=== PATIENT | male | born 1980 | race Caucasian/White ===

== ENCOUNTER 2021-12-03 12:44 | Emergency (ER) | payer MEDICAID, SELFPAY ==
--- NOTE | ~2021-12-03 | XR_ITS ---
Examination: XR femur LT 2V, XR tibia fibula LT 2V Indication: r/o fx Comparison: No pertinent prior studies are currently available for comparison. Technique: Frontal and lateral views the femur with frontal and lateral views of the left tibia and fibula obtained. Findings: Bones are normal anatomic alignment. I do not appreciate any acute fracture or dislocation. Femoral head is well-seated within the left acetabulum. No significant knee joint effusion. Visualized ankle is unremarkable. No bony destructive lesion or periosteal reaction. XR/XR tibia fibula LT 2V Impression: No acute fracture or dislocation.
--- NOTE | ~2021-12-03 | XR_ITS ---
Examination: XR femur LT 2V, XR tibia fibula LT 2V Indication: r/o fx Comparison: No pertinent prior studies are currently available for comparison. Technique: Frontal and lateral views the femur with frontal and lateral views of the left tibia and fibula obtained. Findings: Bones are normal anatomic alignment. I do not appreciate any acute fracture or dislocation. Femoral head is well-seated within the left acetabulum. No significant knee joint effusion. Visualized ankle is unremarkable. No bony destructive lesion or periosteal reaction. XR/XR femur LT 2V Impression: No acute fracture or dislocation.
[2021-12-03] MEDS: Morphine Sulfate 4 MG/ML CARTRIDGE IVPUSH ×2 (12:52→13:06)
[2021-12-03 12:55] VITALS: BP 143/74; PULSE 87; RESP 22; O2SAT 100; BMI 23.1
--- NOTE | 2021-12-03 13:00 | ED.LOWEXIN ---
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 Patient tells me he was working in a tree when the branch he cut fell striking his LLE. The patient was able to lower himself to the ground and a friend brought him here. The friend tells me the patient did not hit his head or pass out. He has some abrasions to his chest wall which he tells me occurred during his descent but denies any chest pain/abdominal pain. No AC therapy use. No CORREIA, vision changes, vomiting, neck pain/back pain. No numbness, weakness, tingling of the LE. Last tetanus unknown Related Data Previous Rx's Medication Instructions Recorded cyclobenzaprine 10 mg tablet 10 mg PO TID PRN #10 tab 12/03/21 ibuprofen 800 mg tablet 800 mg PO Q8H PRN #30 tab 12/03/21 Allergies Allergy/AdvReac Type Severity Reaction Status Date / Time No Known Allergies Allergy Verified 12/03/21 12:58 Review of Systems Review of Systems: Yes all other systems are reviewed and are negative Constitutional: Constitutional: Reports no additional constitutional complaints, Denies body ache(s), Denies chills, Denies fever(s), Denies headache(s) and Denies weakness Eyes: Eyes: Reports no additional eye complaints and Denies change in vision ENT: Reports system reviewed and no additional complaints, except as documented, Denies dizziness, Denies headache(s), Denies nasal congestion, Denies nasal discharge and Denies neck pain Cardiovascular: Cardiovascular: Reports no additional cardiovascular complaints, Denies chest pain, Denies leg edema and Denies dyspnea Respiratory: Respiratory: Reports no additional respiratory complaints, Denies cough and Denies dyspnea Gastrointestinal: Gastrointestinal: Reports no additional gastrointestinal complaints, Denies abdominal pain, Denies diarrhea, Denies nausea and Denies vomiting Genitourinary: Genitourinary: Denies urinary incontinence Musculoskeletal: Musculoskeletal: Reports no additional musculoskeletal complaints, Denies back pain, Reports arthralgias, Reports joint swelling, Reports limited range of motion, Denies neck pain, Denies numbness and Denies tingling Integumentary/Breasts: Skin/Breast: Reports system reviewed and no additional complaints, except as docu and Denies rash Neurologic: Reports system reviewed and no additional complaints, except as documented, Denies Abnormal speech present, Denies dizziness, Denies headache(s), Denies numbness, Denies tingling and Denies weakness PMFSH Past Medical History Attestation statement: The following information was validated with the patient. Source: old records reviewed and nursing notes reviewed Medical History ADD (attention deficit disorder) No known health problems Social History Social History Alcohol intake: never Patient Tobacco Use Status: Current everyday Tobacco user Use of substances other than those prescribed or required for medical reasons: Yes Substance Use Frequency Other:: former substance use on suboxone. Advance Directives: No Advance Directives Information Provided: No Physical Exam Vital Signs: Vital Signs: Last Vital Signs Temp 97.9 F 12/03/21 16:00 Pulse 66 12/03/21 16:00 Resp 16 12/03/21 16:00 BP 128/77 12/03/21 16:00 Pulse Ox 100 12/03/21 16:00 BMI result Body Mass Index 23.1 Const: General: cooperative and other (in pain ) Orientation/consciousness: patient oriented x3 Limitations: no limitations HEENT: Head: Yes normal to inspection, No Tejeda's sign and No raccoon eyes Ears: hearing grossly normal bilaterally and TM's normal bilaterally General nose exam: Normal external nose present Face and sinus: Yes normal facial exam Mouth: Normal oral and palatal mucosa present Throat: Yes posterior oropharynx normal, Yes tonsils normal and Yes uvula midline Eyes: General: appearance normal, both eyes and all related structures Pupils: Equal, round and reactive pupils present Neck: Neck: Yes normal visual inspection, Yes full ROM, Yes no lymphadenopathy and Yes no meningeal signs Chest: Chest palpation & inspection: normal inspection of the chest Resp: Effort & Inspection: normal respiratory effort Auscultation: clear to auscultation bilaterally Cardio: Rate: regular rate Rhythm: regular rhythm Peripheral pulses: Peripheral pulses 2+ throughout GI: Inspection: Yes normal to inspection Palpation (GI): Soft to palpation and nontender Auscultation: normal bowel sounds Abdomen image: 1. abrasions Back/Spine/Pelvis: Thoracic/Lumbar Spine: thoracic and lumbar spine normal to inspection Skin: General skin exam: no rashes or lesions noted Neuro: General: patient oriented x3, moves all extremities, no meningeal signs, no focal motor deficits, normal sensation to monofilament and Unable to assess gait (d/t pain) Cranial nerves: Yes CN's II-XII intact bilaterally, Yes Equal, round and reactive pupils present, Yes Bilaterally intact EOM present, Yes Nystagmus not present, Yes Normal facial strength present and Yes Midline tongue present Cognition (Neuro): normal cognition Speech: No Abnormal speech present Gait exam (Neuro): Unable to assess gait (d/t pain) Motor exam (neuro): 5/5 motor strength present throughout Sensory Exam: Normal double simultaneous stimulation for sensation Extrem: Other: To the left knee/proximal tibia/fibula there is ecchymosis/tenderness/abrasions. Unable to assess ROM d/t pain. Distal DP/PT pulses normal. Distal sensation intact. No tenderness over the ankle/foot hip or pelvis on left side. Course Course Course Narrative: 41yo male here with left knee/LLE pain after being struck by a tree branch while cutting it. Patient in pain on arrival. Given MS immediately, required second dose MS after. Will obtain x-rays, lab, update tetanus Reevaluation(s) Reevaluation #1: X-ray show no acute finding. Patient is feeling improved was able to ambulate with some crutches. Likely contusion. Will discharge patient home with NSAID, low-dose muscle relaxant, crutches and Abundio wrap. Reviewed worrisome signs and symptoms of when to return to the emergency department. Comfortable discharge home. Time: 17:00 MDM - Extremity Injury (Lower) Medical Records Attestation: I reviewed the patient's medical records. Lab Data Attestation: I reviewed the patient's lab results. Result diagrams: 12/03/21 13:54 12/03/21 13:54 Labs: Lab Results 12/03/21 12/03/21 Range/Units 13:54 13:54 WBC 8.9 (4.8-10.8) X10*3/uL RBC 5.05 (4.60-5.80) X10*6/uL Hgb 14.6 (14.0-18.0) g/dl Hct 43.3 (42.0-52.0) % MCV 85.7 (80.0-98.0) fL MCH 28.9 (27.0-33.0) pg MCHC 33.7 (31.0-36.0) g/dl RDW 13.2 (11.0-16.0) % Plt Count 205 (160-400) X10*3/uL MPV 9.1 L (9.4-12.4) fL Immature Gran % (Auto) 0.1 (0.0-0.4) % Neut % (Auto) 78.9 H (45-73) % Lymph % (Auto) 15.1 L (20-40) % [place]estone % (Auto) 5.3 (2-11) % Eos % (Auto) 0.4 (0-4) % Baso % (Auto) 0.2 (0-2) % Lymph # (Auto) 1.3 (1.2-4.9) X10*3/uL [place] # (Auto) 0.5 (0.1-1.2) X10*3/uL Eos # (Auto) 0.0 (0.0-0.4) X10*3/uL Baso # (Auto) 0.0 (0.0-0.2) X10*3/uL Abs Immat Gran (auto) 0.01 (0.00-0.03) X10*3/uL Absolute Neuts (auto) 7.0 (2.0-8.3) x10*3/uL Absolute Nucleated RBC 0.000 (0.0-0.012) X10*3/uL Nucleated RBC % (auto) 0.0 (0.0-0.2) /100WBC Sodium 138 (135-145) mmol/L Potassium 4.5 (3.3-5.1) mmol/L Chloride 106 (96-108) mmol/L Carbon Dioxide 24 (22-29) mmol/L Anion Gap 13 (12-20) BUN 19 H (9-16) mg/dL Creatinine 0.97 (0.5-1.4) mg/dL Estim Creat Clear Calc 116.9 Estimated GFR > 60 Random Glucose 90 (60-115) mg/dL Calcium 9.2 (8.4-10.2) mg/dL Total Bilirubin 0.4 (0.0-1.0) mg/dL Direct Bilirubin 0.2 (0.0-0.5) mg/dL AST 48 H (5-37) U/L ALT 32 (0-40) U/L Alkaline Phosphatase 73 (39-117) U/L Total Protein 7.1 (6.5-8.0) g/dL Albumin 4.4 (3.5-5.0) g/dL Imaging Data left knee/tibia/fibula/femur: Attestation: I personally reviewed and interpreted this imaging study as follows: Radiologist's impression: [address] [id number] XRay Report Signed Patient: Manuel Carr MR#: [id number] : 1980 Acct:[id number] Age/Sex: 41 / M ADM Date: 12/03/21 Loc: .ED Attending Dr: Ordering Physician: Madalyn Pierce MD Date of Service: 12/03/21 Procedure(s): XR femur LT 2V Accession Number(s): [id number] cc: Madalyn Pierce MD~ Examination: XR femur LT 2V, XR tibia fibula LT 2V Indication: r/o fx Comparison:? No pertinent prior studies are currently available for comparison. Technique: Frontal and lateral views the femur with frontal and lateral views of the left tibia and fibula obtained. Findings: Bones are normal anatomic alignment. I do not appreciate any acute fracture or dislocation. Femoral head is well-seated within the left acetabulum. No significant knee joint effusion. Visualized ankle is unremarkable. No bony destructive lesion or periosteal reaction. XR/XR femur LT 2V Impression: No acute fracture or dislocation. Procedures Procedure Narrative Procedure Narrative: Abundio wrap, crutches Discharge Plan Discharge Clinical Impression: Contusion of left lower leg, Contusion of knee, left Patient Disposition: Home, Self-Care Instructions: Contusion in Adults (ED) Additional Instructions: Ice, elevation, Abundio wrap and crutches for comfort Alternate Motrin and Tylenol for pain as needed. See primary care doctor in 7 days or persistent symptoms Prescriptions: New ibuprofen 800 mg tablet 800 mg PO Q8H PRN (Reason: pain) Qty: 30 0RF cyclobenzaprine 10 mg tablet 10 mg PO TID PRN (Reason: muscle spasm) Qty: 10 0RF Referrals: Physician,Unknown J [Primary Care Provider] - 1 week (For persistent symptoms) Interventions: ED Discharge Assessment Last Done: 12/03/21 17:18 Discharge Date/Time: 12/03/21 17:19
[2021-12-03] MEDS: ondansetron HCL 4 MG/2 ML VIAL IVPUSH (13:04)
[2021-12-03] MEDS: 0.9 % Sodium Chloride 1,000 ML 999 ML IV (13:04)
--- NOTE | 2021-12-03 13:15 | PC.NURSE ---
patient a&ox3, vss, pt 06/04 lle pain, + csm/pedal pulse, iv inserted, pt medicated per order, call sheriff within reach, will continue to monitor.
--- NOTE | 2021-12-03 13:20 | PC.NURSE ---
pt to xr
[2021-12-03 13:58] LABS: MANUAL DIFF FLAG NO
[2021-12-03 13:59] LABS: Basophils Percent Auto 0.2 % (0-2); Eosinophils Percent Auto 0.4 % (0-4); Hematocrit 43.3 % (42.0-52.0); Hemoglobin 14.6 g/dl (14.0-18.0); Imm Gran Abs Auto 0.01 X10*3/uL (0.00-0.03); Imm Gran Pct Auto 0.1 % (0.0-0.4); Lymphocytes Absolute Auto 1.3 X10*3/uL (1.2-4.9); Lymphocytes Percent Auto 15.1 % (20-40); Mean Corpuscular HGB Conc 33.7 g/dl (31.0-36.0); Mean Corpuscular Hemoglobin 28.9 pg (27.0-33.0); Mean Corpuscular Volume 85.7 fL (80.0-98.0); Mean Platelet Volume 9.1 fL (9.4-12.4); Monocytes Absolute Auto 0.5 X10*3/uL (0.1-1.2); Monocytes Percent Auto 5.3 % (2-11); Neutrophils Percent Auto 78.9 % (45-73); Platelet Count 205 X10*3/uL (160-400); Red Blood Count 5.05 X10*6/uL (4.60-5.80); Red Cell Distribution Width 13.2 % (11.0-16.0); White Blood Count 8.9 X10*3/uL (4.8-10.8)
[2021-12-03] MEDS: Ketorolac Tromethamine 30 MG/ML VIAL IVPUSH (13:59)
[2021-12-03] MEDS: Diphth,Pertus(ACell),Tet Adult 0.5 ML SYRINGE IM (13:59)
[2021-12-03 14:05] VITALS: BP 130/81; PULSE 59; RESP 18; O2SAT 96
--- NOTE | 2021-12-03 14:07 | PC.NURSE ---
patient a&ox3, vss, pt medicated per order, monitor and storage bin tender sinus cathleen, call sheriff within reach, will continue to monitor.
[2021-12-03 14:29] LABS: Alanine Aminotransferase 32 U/L (0-40); Albumin Level 4.4 g/dL (3.5-5.0); Alkaline Phosphatase 73 U/L (39-117); Anion Gap 13 (12-20); Aspartate Amino Transferase 48 U/L (5-37); Bilirubin Direct 0.2 mg/dL (0.0-0.5); Bilirubin Total 0.4 mg/dL (0.0-1.0); Blood Urea Nitrogen 19 mg/dL (9-16); Calcium 9.2 mg/dL (8.4-10.2); Carbon Dioxide 24 mmol/L (22-29); Chloride 106 mmol/L (96-108); Creatinine Clr Calc Pharmacy 116.9; Estimated Glomerular Filt Rate > 60; Glucose Random 90 mg/dL (60-115); Potassium 4.5 mmol/L (3.3-5.1); Sodium 138 mmol/L (135-145); Total Protein 7.1 g/dL (6.5-8.0)
[2021-12-03 16:00] VITALS: BP 128/77; PULSE 66; RESP 16; TEMP 36.6; O2SAT 100
--- NOTE | 2021-12-03 16:24 | PC.NURSE ---
abrasion to left knee clean and dressed .
--- NOTE | 2021-12-03 16:35 | PC.NURSE ---
PATIENT TOOK A FEW STEPS ,PATIENT STATES IS IN TOO MUCH PAIN ,RN AWARE .
--- NOTE | 2021-12-03 16:44 | PC.NURSE ---
patient a&ox3, vss, lt knee abrasions cleaned/dressed, pt ambulated short distance with tech, pt c/o 5/10 pain, family at bedside, call sheriff within reach, will continue to monitor.
== END 2021-12-03 17:19 | disposition home or self-care (01) ==
PROVIDERS: Nurse Practitioner Family; Emergency Provider Emergency Medicine
DX: S80.12XA Contusion of left lower leg, initial encounter (principal); W01.0XXA Fall on same level from slipping, tripping and stumbling without subsequent striking against object, initial encounter; Y93.9 Activity, unspecified; Y92.9 Unspecified place or not applicable; Y99.9 Unspecified external cause status; Z79.899 Other long term (current) drug therapy; F17.200 Nicotine dependence, unspecified, uncomplicated; Z71.6 Tobacco abuse counseling
CPT/HCPCS: 36415; 73552; 73590; 80048; 80076; 85025; 90471; 90715; 96372; 96374; 96375; 99284; J1885; J2270; J2405